=== PATIENT | female | born 1980 | race Caucasian/White ===

== ENCOUNTER → 2023-02-12 | Outpatient (CLI) | payer OTHER | END | disposition home or self-care (01) | LOC: LABWHC1 12:53 | PROVIDERS: ATTEND Nurse Practitioner Family | DX: K86.81 Exocrine pancreatic insufficiency (principal) ==

== ENCOUNTER → 2023-02-15 | Outpatient (CLI) | payer OTHER | END | disposition home or self-care (01) | LOC: LABPRL 09:28 | PROVIDERS: ATTEND Nurse Practitioner Family | DX: K86.81 Exocrine pancreatic insufficiency (principal) | CPT/HCPCS: 82656 ==